=== PATIENT | male | born 1955 | race Asian ===

== ENCOUNTER 2018-05-19 22:53 | Emergency (ER) | payer MEDICARE, OTHER ==
[~2018-05-19] VITALS: Ht 170.2 cm; Wt 90.7 kg
[~2018-05-19 22:53] MED LIST: AMLO5TAB PO; MIC5 PO; OMEP20TC10 PO; SITA100T8 PO; SYN.05 PO; ZET10 PO
[2018-05-19 23:05] VITALS: BP 183/94
[2018-05-19] MEDS ORDERED: NACL 0.9% 500 ML IV SCH (23:20)
[2018-05-19 23:45] LABS: BASOPHILS % (AUTO) 0.3 % (0.0-2.0); EOSINOPHILS # (AUTO) 0.1 K/uL (0-0.4); HEMATOCRIT 47.6 % (36-52); HEMOGLOBIN 15.6 g/dL (12.0-18.0); LYMPHOCYTES # (AUTO) 2.3 K/uL (2.0-11.5); LYMPHOCYTES % (AUTO) 43.2 % (20.5-51.1); MEAN CORPUSCULAR HEMOGLOBIN 28 pg (27-31); MEAN CORPUSCULAR HGB CONC 33 g/dL (33-37); MONOCYTES # (AUTO) 0.4 K/uL (0.8-1.0); MONOCYTES % (AUTO) 7.1 % (1.7-9.3); NEUTROPHILS # (AUTO) 2.6 K/uL (1.8-7.7); NEUTROPHILS % (AUTO) 48.4 % (42.2-75.2); PLATELET COUNT (AUTO) 213 K/uL (140-450); RED CELL DISTRIBUTION WIDTH 15.5 % (11.6-13.7); WHITE BLOOD COUNT (AUTO) 5.3 K/uL (4.8-10.8)
[2018-05-19 23:57] LABS: CREATININE 1.3 mg/dL (0.7-1.3)
[2018-05-19 23:57] LABS: APPEARANCE,URINE CLEAR (CLEAR); BILIRUBIN,URINE NEGATIVE (NEGATIVE); BLOOD, URINE NEGATIVE (NEGATIVE); COLOR,URINE YELLOW (YELLOW); LEUKOCYTE ESTERASE ,URINE NEGATIVE (NEGATIVE); NITRITE, URINE NEGATIVE (NEGATIVE); PH,URINE 5.5 (5.0-9.0); UGLUCOSE NEGATIVE (NEGATIVE)
--- NOTE | 2018-05-20 | NUR ---
PATIENT TAKEN TO CT VIA WHEELCHAIR WITH TECH.
[2018-05-20 00:03] LABS: TOTAL BILIRUBIN 0.4 mg/dL (0.0-1.0)
--- NOTE | 2018-05-20 00:10 | NUR ---
PATIENT BROUGHT TO ER BED 5.
--- NOTE | 2018-05-20 00:15 | NUR ---
PT IS A 63 Y/O MALE WHO PRESENTS TO THE ED C/O ABD PAIN. PT REPORTS R SIDED ABD PAIN X2 DAYS, REPORTS 8/10 SHARP PAIN, TOOK PEPTO BISMOL WITH NO RELIEF. PT DENIES CP, SOB, REPORTS CONSTIPATION DENIES N/V/D. PT AWAKE AND ALERT, RR EVEN/UNLABORED. PT REPOSITIONED FOR COMFORT, BED IN LOWEST POSITION. ER MD DR. GARCÍA NOTIFIED. WILL CONTINUE TO MONITOR. PMH--DM, HTN, HIGH CHOLESTEROL NKA
[2018-05-20 00:17] LABS: PROTHROMBIN TIME 9.9 secs (10.8-13.4)
[2018-05-20 01:20] VITALS: BP 156/91
--- NOTE | 2018-05-20 01:20 | NUR ---
Patient discharged with v/s stable. Written and verbal after care instructions given and explained. Patient alert, oriented and verbalized understanding of instructions. Ambulatory with steady gait. All questions addressed prior to discharge. ID band removed. Patient advised to follow up with PMD. Rx of MOTRIN AND TRAMADOL given. Patient educated on indication of medication including possible reaction and side effects. Opportunity to ask questions provided and answered.
== END 2018-05-20 01:20 | disposition home or self-care (01) ==
LOC: MED 22:53
DX: N20.0 Calculus of kidney (principal); E11.9 Type 2 diabetes mellitus without complications; I10 Essential (primary) hypertension; Z79.84 Long term (current) use of oral hypoglycemic drugs
CPT/HCPCS: 36415; 71045; 74176; 80053; 81003; 83605; 83880; 84484; 85025; 85610; 85730; 87040; 93005; 99284; J7030; Q0092

== ENCOUNTER 2021-08-31 14:11 | Observation (INO) | payer OTHER, MEDICARE ==
[~2021-08-31] VITALS: Ht 170.2 cm; Wt 82.6 kg
[~2021-08-31 14:11] MED LIST changes: +EZET10TA14 PO; +GLYB-200 PO; -MIC5 PO; +OMEP-303 PO; -OMEP20TC10 PO; -ZET10 PO
[2021-08-31 14:19] VITALS: BP 141/84
[2021-08-31] MEDS ORDERED: MECLIZINE 25 MG TAB PO ONE (14:35)
[2021-08-31] MEDS ORDERED: NACL 0.9% 1,000 ML IV ONE (14:35)
[2021-08-31 14:55] LABS: BASOPHILS % (AUTO) 0.8 % (0.0-2.0); EOSINOPHILS % (AUTO) 0.4 % (0.0-4.0); HEMATOCRIT 44.2 % (36-52); HEMOGLOBIN 14.5 g/dL (12.0-18.0); LYMPHOCYTES # (AUTO) 1.6 K/uL (2.0-11.5); LYMPHOCYTES % (AUTO) 34.1 % (20.5-51.1); MEAN CORPUSCULAR HEMOGLOBIN 28 pg (27-31); MEAN CORPUSCULAR HGB CONC 33 g/dL (33-37); MEAN CORPUSCULAR VOLUME 85.3 fL (80-94); MONOCYTES # (AUTO) 0.3 K/uL (0.8-1.0); MONOCYTES % (AUTO) 6.7 % (1.7-9.3); NEUTROPHILS # (AUTO) 2.7 K/uL (1.8-7.7); PLATELET COUNT (AUTO) 158 K/uL (140-450); RED BLOOD CELL COUNT(AUTO) 5.18 MIL/uL (4.20-6.10); RED CELL DISTRIBUTION WIDTH 14.2 % (11.6-13.7); WHITE BLOOD COUNT (AUTO) 4.7 K/uL (4.8-10.8)
--- NOTE | 2021-08-31 15:19 | NUR ---
72 Y/O MALE BIBA FROM HOME, C/O OF DIZZINESS STARTING AT 10AM, BS AT BEDSIDE 350S, BP 160/74 AT SCENE. 141/84 AT BEDSIDE. 18G ON THE LEFT AC PLACED BY FIRE. PMH; DM, HDL, HTN NKA
[2021-08-31 15:31] LABS: ALBUMIN 3.3 g/dL (3.4-5.0); ANION GAP 9.9 (8-16); ASPARTATE AMINOTRANSFERASE 57 U/L (15-37); CARBON DIOXIDE 27.2 mmol/L (21-32); CHLORIDE 99 mmol/L (98-107); CREATININE 1.2 mg/dL (0.6-1.3); GFR ARICAN-AMERICAN 77 mL/min (>90); GLUCOSE 320 mg/dL (74-106); POTASSIUM 4.1 mmol/L (3.5-5.1); SODIUM SERUM 132 mmol/L (136-145); TOTAL BILIRUBIN 0.5 mg/dL (0.0-1.0); UREA NITROGEN, BLOOD 15 mg/dL (7-18)
--- NOTE | 2021-08-31 16:02 | NUR ---
PT TAKEN TO CT
[2021-08-31 16:48] LABS: APPEARANCE,URINE CLEAR (CLEAR); BILIRUBIN,URINE NEGATIVE (NEGATIVE); BLOOD, URINE NEGATIVE (NEGATIVE); COLOR,URINE YELLOW (YELLOW); LEUKOCYTE ESTERASE ,URINE NEGATIVE (NEGATIVE); NITRITE, URINE NEGATIVE (NEGATIVE); PH,URINE 5.5 (5.0-9.0); UGLUCOSE 3+ (NEGATIVE)
--- NOTE | 2021-08-31 17:00 | NUR ---
PT WAS ABLE TO STAND TAKE A FEW STEPS
--- NOTE | 2021-08-31 17:12 | NUR ---
DR COSME TO SEE THE PATIENT
[2021-08-31] MEDS ORDERED: ZOLP5TAB1 PO (17:17)
[2021-08-31] MEDS ORDERED: LISI-487 PO (17:17)
[2021-08-31] MEDS ORDERED: SIMV40TA1 PO (17:17)
--- NOTE | 2021-08-31 17:33 | NUR ---
SWABS HANDED TO LAB
[2021-08-31] MEDS ORDERED: ACETAMINOPHEN 325 MG TAB PO PRN (17:35)
[2021-08-31] MEDS ORDERED: ONDANSETRON 4 MG/2 ML VIAL IVP PRN (17:35)
[2021-08-31] MEDS ORDERED: MORPHINE SULFATE 4 MG/ML SYR IVP PRN (17:35)
[2021-08-31] MEDS ORDERED: HYDROcodone/APAP 5/325 MG 1 TAB TAB PO PRN (17:35)
[2021-08-31] MEDS: NACL 0.9% 1,000 ML IV SCH (17:42)
--- NOTE | 2021-08-31 18:00 | NUR ---
RECEIVED CALL BACK FROM DR. LIRIANO TO UPDATE ON PATIENT STATUS AND AVAIALBILITY OF MRI. DR. LIRIANO STATES IT IS "OK TO WAIT UNTIL THE MORNING" FOR THE MRI. WILL UPDATE ED/MST STAFF.
[2021-08-31 18:11] LABS: RBC,URINE 0-5 /HPF (0-5); WBC,URINE 0-5 /HPF (0-5)
--- NOTE | 2021-08-31 18:15 | NUR ---
Patient will be admitted to care of DR OSMAN. Admited to [facility]. Will go to room 108B. Belongings list completed. Report to DANYELLE BENITEZ.
--- NOTE | 2021-08-31 18:30 | NUR ---
RECEIVED PT CARE AND REPORT FROM HARISH ER NURSE. PT WAS BROUGHT ON TO UNIT VIA BED, ACCOMPANIED BY HARISH. PT IS A&OX4, NO VISIBLE S/S OF DISTRESS OR DISCOMFORT. DENIES ANY PAIN OR SOB. PT WAS ABLE TO AMBULATE TO BED IN ROOM ROOM 108B. SHAKINESS OBSERVED WITH AMBULATION. PT HAS A LEFT AC 18G IV WITH NS RUNNING AT 80ML/HR. PT APPEARS CALM, RESTING SEMI-FOWLERS. ORIENTED TO CALL LIGHT AND LEFT WITHIN REACH. BED RAILS UP X2 AND BED LOWERED. WILL ENDORSE ADMISSION TO NOC SHIFT. ALL PT NEEDS MET AT THIS TIME.
--- NOTE | 2021-08-31 18:57 | NUR ---
MRSA SPECIMEN COLLECTED, WILL ENDORSE TO NOC SHIFT.
--- NOTE | 2021-08-31 19:10 | NUR ---
RECEIVED ENDORSEMENT FROM EMMANUEL BASSETT FOR CONTINUITY OF CARE. PATIENT IS STABLE AND RESTING. A&OX4. VERBALLY RESPONSIVE AND ABLE TO COMMUNICATE NEEDS. ON ROOM AIR WITH NO APPARENT S/SX OF ACUTE DISTRESS. RESPIRATIONS EVEN AND UNLABORED. DENIES PAIN. PATIENT IS AMBULATORY. PATIENT IS CONTINENT OF VOID AND BM. PATIENT'S IV SITE TO THE LAC 18G IS PATENT/INTACT WITH NS INFUSING AT 80 ML/HOUR. PLAN OF CARE AND WHITE COMMUNICATION BOARD UPDATED. ALL SAFETY MEASURES IN PLACE. BED IN LOW/LOCKED POSITION. CALL LIGHT WITHIN REACH. WILL CONTINUE TO MONITOR.
--- NOTE | 2021-08-31 20:00 | NUR ---
Patient's Plan of Care was discussed and reviewed with FAY: SAMSON
--- NOTE | 2021-08-31 21:05 | NUR ---
CONTACTED DR. LIRIANO TO ORDER PATIENT'S HOME MEDS. PATIENT STATES HE TAKES JANUVIA AND ZESTRIL QD AND SIMVASTATIN QHS. DENIES PAIN. RESPIRATIONS EVEN AND UNLABORED WITH NO APPARENT S/SX OF ACUTE DISTRESS. WHITE COMMUNICATION BOARD UPDATED. ALL SAFETY MEASURES IN PLACE. CALL LIGHT WITHIN REACH. WILL CONTINUE TO MONITOR.
[2021-08-31] MEDS ORDERED: SIMVASTATIN 40 MG TAB PO SCH (22:10)
--- NOTE | 2021-09-01 01:05 | NUR ---
CHECKED PATIENT. PATIENT IS STABLE AND ASLEEP. CHEST IS RISING AND FALLING EVENLY. RESPIRATIONS EVEN AND UNLABORED WITH NO APPARENT S/SX OF ACUTE DISTRESS. WHITE COMMUNICATION BOARD UPDATED. ALL SAFETY MEASURES IN PLACE. CALL LIGHT WITHIN REACH. WILL CONTINUE TO MONITOR.
--- NOTE | 2021-09-01 03:05 | NUR ---
ROUNDED ON PATIENT. PATIENT IS STABLE AND ASLEEP. CHEST IS RISING AND FALLING EVENLY. RESPIRATIONS EVEN AND UNLABORED WITH NO APPARENT S/SX OF ACUTE DISTRESS. WHITE COMMUNICATION BOARD UPDATED. ALL SAFETY MEASURES IN PLACE. CALL LIGHT WITHIN REACH. WILL CONTINUE TO MONITOR.
[2021-09-01 04:00] VITALS: BP 135/81
--- NOTE | 2021-09-01 05:05 | NUR ---
PATIENT STABLE AND AWAKE. PATIENT IS ON THE PHONE WITH FAMILY MEMBER. DENIES PAIN. RESPIRATIONS EVEN AND UNLABORED WITH NO APPARENT S/SX OF ACUTE DISTRESS. ALL NEEDS MET. WHITE COMMUNICATION BOARD UPDATED. ALL SAFETY MEASURES IN PLACE. CALL LIGHT WITHIN REACH. WILL CONTINUE TO MONITOR.
[2021-09-01] MEDS: NACL 0.9% 1,000 ML IV SCH ×2 (06:05→06:26)
[2021-09-01 07:08] LABS: ANION GAP 8.6 (8-16); CARBON DIOXIDE 28.1 mmol/L (21-32); POTASSIUM 3.7 mmol/L (3.5-5.1)
--- NOTE | 2021-09-01 07:10 | NUR ---
ENDORSED PATIENT TO EMMANUEL BASSETT FOR CONTINUITY OF CARE. PATIENT IS STABLE.
--- NOTE | 2021-09-01 07:30 | NUR ---
RECEIVED PT CARE AND REPORT FROM SAMSON BENITEZ. PT IS RESTING IN BED SEMI-FOWLERS. A&OX4, APPEARS CALM. NO VISIBLE S/S OF DISTRESS, DISCOMFORT, PAIN OR SOB. IV FLUIDS INFUSING VIA LAC. CALL LIGHT WITHIN REACH, ALL NEEDS MET AT THIS TIME.
[2021-09-01 07:38] LABS: ALBUMIN 3.3 g/dL (3.4-5.0); ANION GAP 9.3 (8-16); CARBON DIOXIDE 28.5 mmol/L (21-32); CREATININE 1.1 mg/dL (0.6-1.3); POTASSIUM 3.8 mmol/L (3.5-5.1); TOTAL BILIRUBIN 0.5 mg/dL (0.0-1.0)
[2021-09-01] MEDS ORDERED: lisinopriL 20 MG TAB PO SCH (09:00)
[2021-09-01] MEDS ORDERED: MECL-370 PO (09:45)
[2021-09-01 11:56] VITALS: BP 123/80
--- NOTE | 2021-09-01 12:10 | NUR ---
DC PLANN[age] YRS OLD MALE PATIENT WAS ADMITTED FROM HOME WITH A DX OF DIZZINESS, VERTIGO. PATIENT GARZA SA HX OF HTN, HLD, HYPOTHYROIDISM. CT HEAD SHOWED NO ACUTE ABNORMALITY . CTA HEAD AND NECK NEGATIVE. ADMINISTERED IVF AND MECLIZINE , PT FELT BETTER ALREADY CANCELED THE MRI OF THE BRAIN . STABLE FOR DISCHARGE HOME.
[2021-09-01] MEDS ORDERED: SIMVASTATIN 40 MG TAB PO SCH (21:00)
== END 2021-09-01 14:45 | disposition home or self-care (01) ==
LOC: MED 14:11 → MMU 17:36 → MTU 18:10
PROVIDERS: ADMIT Student in an Organized Health Care Education/Training Program; ATTEND Student in an Organized Health Care Education/Training Program
DX: H81.399 Other peripheral vertigo, unspecified ear (principal); Z20.822 Contact with and (suspected) exposure to COVID-19; E86.0 Dehydration; I10 Essential (primary) hypertension; E11.9 Type 2 diabetes mellitus without complications; E78.5 Hyperlipidemia, unspecified; E03.9 Hypothyroidism, unspecified; E86.1 Hypovolemia; Z79.899 Other long term (current) drug therapy
CPT/HCPCS: 36415; 70450; 70496; 70498; 71045; 80048; 80053; 81001; 82550; 84484; 85025; 87081; 87426; 93005; 96360; 96361; 99291; G0378; J8597; Q9967

== ENCOUNTER 2022-02-07 21:48 | Emergency (ER) | payer MEDICARE, OTHER ==
[~2022-02-07] VITALS: Ht 170.2 cm; Wt 81.6 kg
[~2022-02-07 21:48] MED LIST changes: +LISI-487 PO; +MECL-370 PO; +SIMV40TA1 PO; +ZOLP5TAB1 PO
[2022-02-07 22:02] VITALS: BP 126/97
[2022-02-07 22:07] VITALS: BP 126/97
[2022-02-07] MEDS ORDERED: SULF-58 PO (22:10)
== END 2022-02-07 22:07 | disposition home or self-care (01) ==
LOC: MED 21:48
DX: A09 Infectious gastroenteritis and colitis, unspecified (principal); R14.0 Abdominal distension (gaseous); E11.9 Type 2 diabetes mellitus without complications; I10 Essential (primary) hypertension; Z98.890 Other specified postprocedural states; Z79.899 Other long term (current) drug therapy
CPT/HCPCS: 99283

== ENCOUNTER 2023-12-18 23:45 | Emergency (ER) | payer MEDICARE, OTHER ==
[~2023-12-18] VITALS: Ht 170.2 cm; Wt 89.4 kg
[~2023-12-18 23:45] MED LIST changes: -EZET10TA14 PO; +EZET10TA84 PO; -LISI-487 PO; +LISI-953 PO; +SIMV-373 PO; -SIMV40TA1 PO; +SULF-58 PO
[2023-12-18 23:57] VITALS: BP 174/104; PULSE 102; RESP 18; TEMP 98; O2SAT 98
[2023-12-19 02:47] LABS: BASOPHILS % (AUTO) 0.3 % (0.0-2.0); EOSINOPHILS # (AUTO) 0.1 K/uL (0-0.4); EOSINOPHILS % (AUTO) 0.7 % (0.0-4.0); HEMATOCRIT 41.4 % (36-52); HEMOGLOBIN 13.7 g/dL (12.0-18.0); LYMPHOCYTES # (AUTO) 1.9 K/uL (2.0-11.5); LYMPHOCYTES % (AUTO) 26.1 % (20.5-51.1); MEAN CORPUSCULAR HEMOGLOBIN 28 pg (27-31); MEAN CORPUSCULAR HGB CONC 33 g/dL (33-37); MEAN CORPUSCULAR VOLUME 85.5 fL (80-94); MONOCYTES # (AUTO) 0.5 K/uL (0.8-1.0); MONOCYTES % (AUTO) 6.7 % (1.7-9.3); NEUTROPHILS # (AUTO) 4.9 K/uL (1.8-7.7); NEUTROPHILS % (AUTO) 66.2 % (42.2-75.2); PLATELET COUNT (AUTO) 220 K/uL (140-450); RED BLOOD CELL COUNT(AUTO) 4.85 MIL/uL (4.20-6.10); RED CELL DISTRIBUTION WIDTH 13.8 % (11.6-13.7); WHITE BLOOD COUNT (AUTO) 7.4 K/uL (4.8-10.8)
[2023-12-19 03:14] LABS: ALBUMIN 3.4 g/dL (3.4-5.0); ANION GAP 10.4 (8-16); CALCIUM 9.1 mg/dL (8.5-10.1); CARBON DIOXIDE 29.2 mmol/L (21-32); CREATININE 1.2 mg/dL (0.6-1.3); POTASSIUM 3.6 mmol/L (3.5-5.1); TOTAL BILIRUBIN 0.5 mg/dL (0.0-1.0); TOTAL PROTEIN, SERUM 8.3 g/dL (6.4-8.2)
[2023-12-19 03:16] LABS: INR 0.95 (0.8-1.2); PARTIAL THROMBOPLASTIN TIME 24.7 secs (22-35.6)
[2023-12-19] MEDS: ACETAMINOPHEN EXTRA STRENGTH 500 MG TAB PO ONE (04:21)
[2023-12-19] MEDS ORDERED: ACET500T99 PO (04:40)
[2023-12-19 04:48] VITALS: BP 176/104; PULSE 86; RESP 16; TEMP 98; O2SAT 98
== END 2023-12-19 04:48 | disposition home or self-care (01) ==
LOC: MED 23:45
DX: R10.12 Left upper quadrant pain (principal); R07.81 Pleurodynia; E11.9 Type 2 diabetes mellitus without complications; I10 Essential (primary) hypertension; Z79.899 Other long term (current) drug therapy
CPT/HCPCS: 36415; 71260; 74177; 80053; 85025; 85610; 85730; 99285; Q9967